=== PATIENT | male | born 1990 | race Caucasian/White ===

== ENCOUNTER 2019-08-21 00:35 | Emergency (ER) | payer SELFPAY ==
[~2019-08-21] VITALS: Ht 180.3 cm; Wt 78.0 kg
[2019-08-21] MEDS ORDERED: MAGNESIUM/ALUMINUM HYDROXIDE/SIMETHICONE 30ML UDC PO STA (01:16)
[2019-08-21] MEDS ORDERED: VISCOUS LIDOCAINE 2% 15 ML UDC PO STA (01:16)
[2019-08-21 01:30] VITALS: BP 111/66
[2019-08-21] MEDS ORDERED: KETOROLAC 60MG/2ML VIAL IM ONE (01:30)
[2019-08-21 01:59] LABS: BASOPHILS % 0.4 % (0.0-2.0); EOSINOPHILS % 0.3 % (0.0-5.0); HEMATOCRIT. 45.2 % (42.0-52.0); HEMOGLOBIN. 15.5 g/dL (14.0-18.0); LYMPHOCYTES % 7.7 % (20.0-50.0); MEAN CORPUSCULAR HEMOGLOBIN 29.3 pg (28.0-32.0); MEAN CORPUSCULAR VOLUME 85.6 fL (80.0-94.0); MEAN PLATELET VOLUME 9.4 fl (7.4-10.4); NEUTROPHILS % 84.6 % (40.0-76.0); PLATELET 191 x1000/uL (130-400); RED BLOOD CELL COUNT 5.28 mill/uL (4.7-6.1); RED CELL DISTRIBUTION WIDTH 12.8 % (11.6-14.6)
[2019-08-21 02:14] LABS: CHLORIDE 103 mEq/L (98-107)
[2019-08-21 02:20] LABS: ETHANOL BLOOD < 10 mg/dL
[2019-08-21 04:44] LABS: CLARITY URINE CLEAR (CLEAR); COLOR URINE YELLOW (YELLOW); KETONES URINE TRACE (NEGATIVE); LEUKOCYTE ESTERASE URINE NEGATIVE (NEGATIVE); NITRITE URINE NEGATIVE (NEGATIVE); OCCULT BLOOD URINE TRACE (NEGATIVE); PROTEIN URINE NEGATIVE (NEGATIVE); SPECIFIC GRAVITY URINE 1.031 (1.005-1.030); UROBILINOGEN URINE 0.2 E.U./dL (0.2-1.0)
[2019-08-21] MEDS ORDERED: FAMOTIDINE 20MG TABLET PO ONE (04:45)
[2019-08-21 04:52] LABS: *AMPHETAMINES SCREEN URINE NEGATIVE (NEGATIVE); *BARBITURATES SCREEN URINE NEGATIVE (NEGATIVE)
[2019-08-21 04:53] LABS: *BENZODIAZEPINES SCREEN URINE NEGATIVE (NEGATIVE); *COCAINE SCREEN URINE NEGATIVE (NEGATIVE); METHADONE URINE SCREEN NEGATIVE (NEGATIVE); OPIATES URINE SCREEN NEGATIVE (NEGATIVE); PHENCYCLIDINE URINE SCREEN NEGATIVE (NEGATIVE)
[2019-08-21 04:54] LABS: CANNABINOID URINE SCREEN NEGATIVE (NEGATIVE)
== END 2019-08-21 05:16 | disposition home or self-care (01) ==
LOC: ER 01:02
DX: R10.10 Upper abdominal pain, unspecified (principal)
CPT/HCPCS: 36415; 80305; 80320; 81003; 99284; J1885; G0480